=== PATIENT | female | born 1990 | race Caucasian/White ===

== ENCOUNTER 2020-07-30 06:27 | Emergency (ER) | payer BC ==
[~2020-07-30] VITALS: Ht 167.6 cm; Wt 186.9 kg
--- NOTE | 2020-07-30 06:37 | NUR ---
URINE COLLECTED AND SENT TO LAB
--- NOTE | 2020-07-30 06:40 | NUR ---
PT BIBRA FROM HOME C/O SUDDEN ONSET UPPER ABDOMINAL PAIN. PT ALSO C/O NAUSEA. DENIES VOMITTING, DYSURIA, HEMATURIA, DIARRHEA, FEVER. PT AAOX4, APPEARS VERY UNCOMFORTABLE. RESPIRATIONS EVEN AND UNLABORED. SKIN WARM AND INTACT. AMBULATORY WITH STEADY GAIT. PT PLACED IN GOWN AND ON MONITOR, WILL CONTINUE TO MONITOR.
--- NOTE | 2020-07-30 06:45 | NUR ---
IV INITIATED LAC 18G. LABS DRAWN FROM SITE, RE ETCHER AT BEDSIDE FOR COLLECTION. IV INTACT AND PATENT, PLACED ON SALINE LOCK.
[2020-07-30] MEDS ORDERED: ONDANSETRON HCL/PF 4 MG/2 ML VIAL ONE (06:49)
[2020-07-30] MEDS ORDERED: MORPHINE SULFATE INJ 4 MG/ML DISP.SYRIN ONE (06:50)
[2020-07-30 06:55] LABS: BASOPHILS # (AUTO) 0.1 /CMM (0.0-0.2); BASOPHILS % (AUTO) 0.5 % (0.0-2.0); HEMATOCRIT 47 % (33-45); HEMOGLOBIN 16.2 g/dL (11.5-14.8); LYMPHOCYTES # (AUTO) 2.8 /CMM (0.8-4.8); LYMPHOCYTES % (AUTO) 27.2 % (20.0-44.0); MEAN CORPUSCULAR HGB CONC 35 g/dl (31.0-36.0); MEAN CORPUSCULAR VOLUME 85 fL (82-100); MONOCYTES # (AUTO) 0.6 /CMM (0.1-1.30); MONOCYTES % (AUTO) 5.7 % (2.0-12.0); NEUTROPHILS # (AUTO) 6.5 /CMM (1.8-8.9); NEUTROPHILS % (AUTO) 63.6 % (43.0-81.0); PLATELET COUNT (AUTO) 314 /CMM (150-450); RED BLOOD CELL COUNT(AUTO) 5.52 MIL/uL (4.0-5.2); WHITE BLOOD COUNT (AUTO) 10.2 K/uL (4.3-11.0)
[2020-07-30 06:58] LABS: APPEARANCE,URINE CLEAR (CLEAR); BILIRUBIN,URINE NEGATIVE (NEGATIVE); BLOOD, URINE LARGE Ery/uL (NEGATIVE); COLOR,URINE YELLOW (YELLOW); KETONES,URINE NEGATIVE (NEGATIVE); LEUKOCYTE ESTERASE ,URINE NEGATIVE (NEGATIVE); NITRITE, URINE NEGATIVE (NEGATIVE); PH,URINE 6.5 (5.0-8.0); PROTEIN,URINE NEGATIVE (NEGATIVE); UGLUCOSE NEGATIVE (NEGATIVE); UROBILINOGEN,URINE 0.2 EU/dL (0.2)
[2020-07-30] MEDS ORDERED: IV NS 0.9% 1,000 ML BAG IV ONE (07:00)
[2020-07-30] MEDS ORDERED: ONDANSETRON HCL/PF 4 MG/2 ML VIAL IVP ONE (07:00)
[2020-07-30] MEDS ORDERED: MORPHINE SULFATE INJ 2 MG/ML DISP.SYRIN IV ONE (07:00)
--- NOTE | 2020-07-30 07:12 | NUR ---
PT STATES PAIN IS GETTING WORSE. NOTED HYPERTENSION, AWARE. PER VERBAL MD ORDER, WILL ADMINSITER DILAUDID 1MG IV X1 NOW
[2020-07-30] MEDS ORDERED: HYDROMORPHONE 1 MG/1 ML DISP.SYRIN ONE (07:13)
--- NOTE | 2020-07-30 07:15 | NUR ---
REPORT GIVEN TO PETE UMNOZ FOR BERE
--- NOTE | 2020-07-30 07:19 | NUR ---
ULTRASOUND AT BEDSIDE
[2020-07-30 07:23] LABS: ALANINE AMINOTRANSFERASE 19 U/L (12-78); ALBUMIN 3.4 g/dL (3.4-5.0); ALKALINE PHOSPHATASE 100 U/L (46-116); ASPARTATE AMINOTRANSFERASE 13 U/L (15-37); BILIRUBIN,DIRECT 0.1 mg/dL (0.0-0.2); BILIRUBIN,TOTAL 0.5 mg/dL (0.2-1.0); CALCIUM, SERUM 8.9 mg/dL (8.5-10.1); CARBON DIOXIDE 24 mmol/L (21-32); CHLORIDE 103 mmol/L (98-107); CREATININE 0.8 mg/dL (0.6-1.3); GLUCOSE 109 mg/dL (74-106); LIPASE 132 U/L (73-393); POTASSIUM 4.2 mmol/L (3.5-5.1); SODIUM SERUM 139 mmol/L (136-145); TOTAL PROTEIN, SERUM 7.4 g/dL (6.4-8.2); UREA NITROGEN, BLOOD 12 mg/dL (7-18)
[2020-07-30] MEDS ORDERED: HYDROMORPHONE 1 MG/1 ML DISP.SYRIN IV ONE (07:30)
[2020-07-30 08:47] LABS: BACTERIA,URINE Rare /HPF (None Seen); SQUAMOUS EPITHELIAL CELL,UR Few /HPF (None Seen); WBC,URINE 0-2 /HPF (0-3)
--- NOTE | 2020-07-30 09:10 | NUR ---
PATIENT A/OX4, AMBULATORY WITH STEADY GAIT, PAIN HAS IMPROVED. IV removed. Catheter intact and site benign. Pressure and 4x4 applied to site. No bleeding noted. Patient discharged to home in stable condition. Written and verbal after care instructions given. Patient verbalizes understanding of instruction.
[2020-07-30 09:11] VITALS: BP 159/97
== END 2020-07-30 09:14 | disposition home or self-care (01) ==
LOC: ER 06:30 → EDBD 06:30 → ER 09:14
DX: R10.10 Upper abdominal pain, unspecified (principal); R11.2 Nausea with vomiting, unspecified; I10 Essential (primary) hypertension
CPT/HCPCS: 36415; 76705; 80048; 80076; 81001; 83690; 84484; 84703; 85025; 93005; 96361; 96374; 96375; 99285; J1170; J2270; J2405; J7030; 81000-TC